=== PATIENT | male | born 1950 | race Two or more races ===

== ENCOUNTER → 2023-09-21 | Day surgery (SDC) | payer OTHER ==
[~2023-09-21] VITALS: Ht 165.1 cm; Wt 77.1 kg
[~2023-09-21] MED LIST: ADULT LOW DOSE81 M1 PO; BUPIVACAINE HCL 30 ML VIAL IJ ONE; CARVEDILOL25 M1 PO; CEFTRIAXONE SODIUM 2,000 MG VIAL IV ONE; CEFTRIAXONE SODIUM 2,000 MG VIAL ONE; DIBUCAINE 15 GM OINT..GM. TUBE RECTAL ONE; GLIPIZIDE XL5 MG PO; HEMOSTATIC MATRIX 1 KIT KIT TOP ONE; JANUMET 50-1,01 EACH PO; LIDOCAINE HCL 1%/Epi 20ML VIAL IJ ONE; LIPITOR40 M1 PO; LOSARTAN POTAS100 MG PO; METRONIDAZOLE/SODIUM CHLORIDE 500 MG/100 ML PIGGYBACK IV ONE; ONDANSETRON HCL 2 MG/ML VIAL ONE; POVIDONE-IODINE 118 ML BOTT TOP ONE; hydrALAZINE HCL 20 MG VIAL ONE
== END | disposition home or self-care (01) ==
LOC: ADM 09-13 10:15 → CIR.AMB 06:49
PROVIDERS: ATTEND Colon & Rectal Surgery
DX: K64.2 Third degree hemorrhoids (principal); K64.4 Residual hemorrhoidal skin tags; E11.9 Type 2 diabetes mellitus without complications; I10 Essential (primary) hypertension